=== PATIENT | male | born 1960 | race African-American/Black ===

== ENCOUNTER 2017-12-14 15:59 | Emergency (ER) | payer OTHER ==
[2017-12-14] MEDS ORDERED: Adacel (T-DAP) 0.5 ML VIAL ONE (16:18)
== END 2017-12-14 16:32 | disposition home or self-care (01) ==
LOC: BURERS 15:59
DX: S01.81XA Laceration without foreign body of other part of head, initial encounter (principal); F17.210 Nicotine dependence, cigarettes, uncomplicated; W22.8XXA Striking against or struck by other objects, initial encounter
CPT/HCPCS: 12011; 90471; 90715